=== PATIENT | female | born 1980 | race Caucasian/White ===

== ENCOUNTER 2020-06-13 07:55 | Day surgery (SDC) | payer MEDICAID ==
[2020-06-07 14:14] LABS: BASOPHILS # (AUTO) 0.1 X10'3 (0-0.2); BASOPHILS % (AUTO) 1.2 % (0-1); EOSINOPHILS # (AUTO) 0.5 X10'3 (0-0.9); EOSINOPHILS % (AUTO) 4.4 % (0-6); LYMPHOCYTES # (AUTO) 2.9 X10'3 (1.1-4.8); LYMPHOCYTES % (AUTO) 24.1 % (21-51); MEAN CORPUSCULAR HEMOGLOBIN 31.3 PG (27.0-31.0); MEAN CORPUSCULAR HGB CONC 33.2 g/dL (33.0-36.5); MEAN CORPUSCULAR VOLUME 94.3 FL (78-98); MEAN PLATELET VOLUME 8.9 FL (7.4-10.4); MONOCYTES # (AUTO) 0.9 X10'3 (0-0.9); MONOCYTES % (AUTO) 7.8 % (2-12); NEUTROPHILS # (AUTO) 7.5 X10'3 (1.8-7.7); NEUTROPHILS % (AUTO) 62.5 % (42-75); PRE OP HEMATOCRIT 41.7 % (35.0-45.0); PRE OP HEMOGLOBIN 13.8 g/dL (12.0-16.0); PRE OP PLATELET COUNT 333 X10'3 (140-440); RED BLOOD COUNT 4.42 X10'6 (4.20-5.60); RED CELL DISTRIBUTION WIDTH 14.3 % (11.5-14.5)
[2020-06-07 14:29] LABS: ALBUMIN 3.7 G/DL (3.4-5.0); ALKALINE PHOSPHATASE 71 IU/L (46-116); BLOOD UREA NITROGEN 18 MG/DL (7-18); BUN/CREATININE RATIO 20.5 (6.6-38.0); CHLORIDE 104 MMOL/L (99-107); CREATININE 0.88 MG/DL (0.40-0.90); HCG SERUM QL NEGATIVE; PRE OP ALT 52 U/L (30-65); PRE OP ANION GAP 9 (8-16); PRE OP AST 21 U/L (10-37); PRE OP BILIRUB, TOTAL 0.3 MG/DL (0.0-1.0); PRE OP GLUCOSE 90 MG/DL (70-104); PRE OP SODIUM 138 MMOL/L (135-145); TOTAL CARBON DIOXIDE 25.2 MMOL/L (24-32); TOTAL PROTEIN 7.4 G/DL (6.4-8.2); eGFR 72 ML/MIN
[~2020-06-13] VITALS: Ht 157.5 cm; Wt 109.0 kg
[~2020-06-13 07:55] MED LIST: ALBU8HFA PO; BUDE10.26 INH; BUPIVAcaine/PF 2.5 mg/ml (0.25%) 30ml vial ONE; CHOL20002 PO; HYDR-3965 PO; IBUP-1986 PO; MULT-1074 PO; NAPR-996 PO; VITAMIN E PO; albuterol 2.5 MG/3 ML nebule NEB ONE; cefazolin/dext.iso 2gm/100ml 100 ML IV ONE; famotidine 20mg tablet PO ONE; ringers solution, lacted 1,000 ML IV SCH
[2020-06-13] MEDS ORDERED: LIDOcaine 1% (10mg/ml) 2ml vial ONE (08:43)
[2020-06-13 09:26] VITALS: BP 138/98
[2020-06-13] MEDS ORDERED: BUPIVAcaine/PF 2.5 mg/ml (0.25%) 30ml vial ONE (09:54)
[2020-06-13] MEDS ORDERED: fentaNYL/PF 50MCG/1 ML 2ML syringe IV PRN ×2 (10:00)
[2020-06-13] MEDS ORDERED: hydrALAZINE 20mg/ml inj. IV PRN (10:00)
[2020-06-13] MEDS ORDERED: ondansetron/PF 4mg/2ml inj IV PRN (10:00)
[2020-06-13] MEDS ORDERED: labetalol 20mg/4ml (5mg/ml) syringe IV PRN (10:00)
[2020-06-13] MEDS ORDERED: morphine 2 MG/ML inj. syringe IV PRN (10:00)
[2020-06-13] MEDS ORDERED: morphine 4 MG/ML inj SYRINge IV PRN (10:00)
[2020-06-13] MEDS ORDERED: ringers solution, lacted 1,000 ML IV SCH (10:00)
[2020-06-13] MEDS ORDERED: fentaNYL/PF 50MCG/1 ML 2ML syringe ONE (10:02)
[2020-06-13] MEDS ORDERED: LIDOcaine 0.5% (5mg/ml) 50ml vial ONE (10:02)
[2020-06-13] MEDS ORDERED: MIDAZolam 1 MG/ML 5ML VIAL ONE (10:02)
[2020-06-13 10:45] VITALS: BP 137/89
--- NOTE | 2020-06-13 10:45 | NUR ---
Received from OR via , accompanied by Anesthesiologist DR CASTANON and report given by Anesthesiolgist. AWAKENS TO VOICE. VITALS STABLE. DRESSING DI. SALVADOR PAIN. FINGERS WARM AND PINK.
[2020-06-13 10:55] VITALS: BP 130/87
[2020-06-13 11:05] VITALS: BP 114/81
[2020-06-13 11:15] VITALS: BP 128/85
[2020-06-13 11:25] VITALS: BP 118/84
--- NOTE | 2020-06-13 11:35 | NUR ---
AWAKE AND ORIENTED. VITALS STABLE. DRESSING DI. SALVADOR PAIN. HOME WITH HER FATHER AT THIS TIME.
== END 2020-06-13 11:35 | disposition home or self-care (01) ==
LOC: PAS 07:55
PROVIDERS: ATTEND Orthopaedic Surgery Hand Surgery
DX: S62.001K Unspecified fracture of navicular [scaphoid] bone of right wrist, subsequent encounter for fracture with nonunion (principal); M19.231 Secondary osteoarthritis, right wrist; J44.9 Chronic obstructive pulmonary disease, unspecified; F32.9 Major depressive disorder, single episode, unspecified; Z91.040 Latex allergy status; F41.9 Anxiety disorder, unspecified; G43.909 Migraine, unspecified, not intractable, without status migrainosus; Z85.41 Personal history of malignant neoplasm of cervix uteri; E66.9 Obesity, unspecified; Z68.41 Body mass index [BMI] 40.0-44.9, adult; Z88.0 Allergy status to penicillin; Z88.1 Allergy status to other antibiotic agents; Z79.899 Other long term (current) drug therapy; Z98.890 Other specified postprocedural states; Z20.822 Contact with and (suspected) exposure to COVID-19; X58.XXXD Exposure to other specified factors, subsequent encounter
CPT/HCPCS: 25230; 36415; 80053; 82948; 84703; 85025; 93005; 94640; A6222; J2001; J2250; J3010; J3490; J7120; U0003; A4215; A4618; A6449; A7000